=== PATIENT | female | born 1950 | race Caucasian/White ===

== ENCOUNTER 2018-02-13 02:02 | Emergency (ER) | payer MEDICARE, BC, SELFPAY ==
[2018-02-13 02:11] VITALS: BP 146/70; PULSE 62; RESP 18; TEMP 36.5; O2SAT 100
--- NOTE | 2018-02-13 02:39 | W.ED.GENAD ---
Discharge Plan Discharge Details Chief Complaint: Laceration Clinical Impression: Finger laceration Reason For Visit: R RING FINGER LACERATION Primary Care Provider: Vivian Dumont ED Provider: Wolf Pyle Disposition Patient Disposition: HOME Condition: Good Home Meds and New Rx's Prescriptions: Continue lisinopril 20 MG tablet 10 mg PO DAILY RF: 0 arm brace [Wrist Brace Medium] 1 EACH misc 2 ea Miscellaneous DAILY Qty: 2 RF: 0 arm brace [RIC Elbow Brace] 1 EACH misc 1 ea Miscellaneous DAILY Qty: 1 RF: 0 arm brace [RIC Elbow Brace] 1 EACH misc 1 ea Miscellaneous DAILY Qty: 1 RF: 0 loperamide 2 MG capsule 1 cap PO DAILY PRNRF: 0 ibuprofen 200 MG capsule 2 tab PO .Q 4-6HRS PRNRF: 0 acetaminophen [Arthritis Pain Relief (acetam)] 650 MG tablet extended release 1 tab PO PRN PRNRF: 0 levothyroxine 75 MCG tablet 75 mcg PO DAILY RF: 0 levetiracetam 250 mg Tablet 250 mg PO BID RF: 0 Discharge Instructions Instructions: Finger Laceration (ED) Additional Instructions: Do not soak the hand. Gentle washing is acceptable. Keep covered. Watch for signs of infection. Return to ED if increasing pain, redness, swelling, fever. Sutures out in 7-10 days. Referrals: [facility] [Provider Group] Discharge Data Discharge Date/Time-TO BE ENTERED AT DEPARTURE: 02/13/18 03:58 Medical Decision Making MDM Narrative Medical decision making narrative: Patient with a 1 cm linear laceration to the base of the right ring finger dorsally. Extensor tendon is intact. I am able to visualize it on inspection. She has normal strength in the finger. She has normal sensation and cap refill. She has no other injury. She has normal range of motion with no evidence of metacarpal joint involvement. Digital block was not feasible given the location of the laceration. Laceration itself was therefore anesthetized with 1% lidocaine plain. Wound was irrigated out. Extensor tendon was visualized and intact. Wound closed with 3 5-0 nylon sutures with good approximation of edges. Patient tolerated procedure well. Patient is discharged home with instructions to keep the wound clean and dry and not soak her hand. Watch for signs of infection. Sutures out in 7-10 days. Return if any evidence of infection. HPI - General Adult General Mode of arrival: ambulatory. Date/Time Provider Initiated Documentation: 02/13/18 02:39. Limitations to Documentation: no limitations. Information obtained by: patient. HPI Narrative-FOR DICTATION ONLY HPI Narrative: Patient presents to ED with laceration to the right ring finger. Patient was picking up a tote in her basement. She went to set it up on a shelf and caught her hand on a piece of window pain that she had placed up there previously. She sustained a laceration at the base of the ring finger dorsally. She thought it was a little deep so she came in for evaluation. She denies any other injury. She denies weakness or numbness to the finger. Her tetanus is up-to-date. Related Data Home Medications Medication Instructions Recorded Confirmed lisinopril 10 mg PO DAILY tab-cap 11/22/12 02/13/18 loperamide 1 cap PO DAILY PRN 04/05/13 02/13/18 ibuprofen 2 tab PO .Q 4-6HRS PRN 05/07/15 02/13/18 acetaminophen [Arthritis Pain 1 tab PO PRN PRN 10/01/15 02/13/18 Relief (acetam)] levothyroxine 75 mcg PO DAILY 06/24/16 02/13/18 levetiracetam 250 mg PO BID 02/13/18 02/13/18 Allergies Allergy/AdvReac Type Severity Reaction Status Date / Time amlodipine Allergy Intermediate Skin Rash Unverified 02/13/18 02:18 atenolol Allergy Intermediate Swelling/Ed Unverified 02/13/18 02:18 byr clindamycin Allergy Intermediate Skin Rash Unverified 02/13/18 02:18 desipramine Allergy Unknown Unverified 02/13/18 02:18 doxazosin Allergy Unknown Unverified 02/13/18 02:18 nifedipine Allergy Unknown Unverified 02/13/18 02:18 hydroxyzine Allergy Unverified 02/13/18 02:21 Penicillins Allergy Unverified 02/13/18 02:20 Bailtyi-Uhq-Lkp Reductase Allergy Other (See Unverified 02/13/18 02:18 Inhibitor Comment) cephalexin AdvReac Intermediate Diarrhea Unverified 02/13/18 02:18 rizatriptan AdvReac Intermediate Dizziness/L Unverified 02/13/18 02:18 ightheade tramadol AdvReac Intermediate Nausea, Unverified 02/13/18 02:18 vomiting zolmitriptan AdvReac Intermediate Dizziness/L Unverified 10/25/15 14:16 ightheade ketorolac AdvReac Mild eye drop RALPH Unverified 06/24/16 08:19 chocolate flavor AdvReac Other (See Unverified 02/13/18 02:21 Comment) lactose AdvReac Unverified 02/13/18 02:24 nepafenac [From Nevanac] AdvReac Headache Unverified 02/13/18 02:24 perfume AdvReac Unverified 02/13/18 02:21 cheddar cheese flavor AdvReac Headache Uncoded 02/13/18 02:24 General Stated Complaint: Laceration EFRA: 4 Review of Systems Constitutional Denies chills, Denies fever(s) and Denies weakness Musculoskeletal Denies myalgias, Denies arthralgias and Denies numbness Integumentary/Breasts Reports wounds (laceration) Neurologic Denies numbness and Denies weakness [facility] Family History Mother No problems noted. Father Diabetes Heart disease Hyperlipidemia mat aunt Personal history of malignant neoplasm Medical History Cataract Diabetes mellitus, type 2 Hypothyroidism Migraine irritable bowel syndrome Social History Smoking/Tobacco Use Status: Never Surgical History Colonoscopy - IV Sedation (~05/2012) Extraction of cataract hysterectomy, total abdominal BSO (~1991) Exam Const General: cooperative, comfortable, no acute distress and well developed Nutritional Appearance: well nourished [facility] Head: normocephalic and atraumatic Neck Neck: supple Skin Trauma: laceration (1) right dorsal 4th finger Neuro General: alert, oriented x3, no focal motor deficits and CN's II-XI intact bilaterally Sensory Exam: no sensory deficits noted Extrem Right upper extremity: normal to inspection, full ROM and hand Details: neuromotor exam normal, neurosensory exam normal and laceration Course Vital Signs Temperature 97.7 F 02/13/18 02:11 Pulse 62 02/13/18 02:11 Respiratory Rate 18 02/13/18 02:11 Blood Pressure 146/70 H 02/13/18 02:11 Pulse Oximetry 100 02/13/18 02:11 Temperature 97.7 F 02/13/18 02:11 Pulse 62 02/13/18 02:11 Respiratory Rate 18 02/13/18 02:11 Blood Pressure 146/70 H 02/13/18 02:11 Pulse Oximetry 100 02/13/18 02:11 Procedures Laceration Laceration 1: Site: hand Side (If applicable): right Size (cm): 1 Description: linear Depth: simple, single layer Local Anesthetic: Lidocaine 1% Amount of anesthesia used (mL): 1 Pre-repair: wound explored and irrigated extensively Skin layer closed with: nylon Size (cm): 5-0 Number of sutures: 3 Technique: simple, interrupted
--- NOTE | 2018-02-13 03:18 | ED.GENADUL_ITS ---
Discharge Plan Discharge Details Chief Complaint: Laceration Clinical Impression: Finger laceration Reason For Visit: R RING FINGER LACERATION Primary Care Provider: Vivian Dumont ED Provider: Wolf Pyle Disposition Patient Disposition: HOME Condition: Good Home Meds and New Rx's Prescriptions: Continue lisinopril 20 MG tablet 10 mg PO DAILY RF: 0 arm brace [Wrist Brace Medium] 1 EACH misc 2 ea Miscellaneous DAILY Qty: 2 RF: 0 arm brace [RIC Elbow Brace] 1 EACH misc 1 ea Miscellaneous DAILY Qty: 1 RF: 0 arm brace [RIC Elbow Brace] 1 EACH misc 1 ea Miscellaneous DAILY Qty: 1 RF: 0 loperamide 2 MG capsule 1 cap PO DAILY PRNRF: 0 ibuprofen 200 MG capsule 2 tab PO .Q 4-6HRS PRNRF: 0 acetaminophen [Arthritis Pain Relief (acetam)] 650 MG tablet extended release 1 tab PO PRN PRNRF: 0 levothyroxine 75 MCG tablet 75 mcg PO DAILY RF: 0 levetiracetam 250 mg Tablet 250 mg PO BID RF: 0 Discharge Instructions Instructions: Finger Laceration (ED) Additional Instructions: Do not soak the hand. Gentle washing is acceptable. Keep covered. Watch for signs of infection. Return to ED if increasing pain, redness, swelling, fever. Sutures out in 7-10 days. Referrals: [facility] [Provider Group] Discharge Data Discharge Date/Time-TO BE ENTERED AT DEPARTURE: 02/13/18 03:58 Medical Decision Making MDM Narrative Medical decision making narrative: Patient with a 1 cm linear laceration to the base of the right ring finger dorsally. Extensor tendon is intact. I am able to visualize it on inspection. She has normal strength in the finger. She has normal sensation and cap refill. She has no other injury. She has normal range of motion with no evidence of metacarpal joint involvement. Digital block was not feasible given the location of the laceration. Laceration itself was therefore anesthetized with 1% lidocaine plain. Wound was irrigated out. Extensor tendon was visualized and intact. Wound closed with 3 5-0 nylon sutures with good approximation of edges. Patient tolerated procedure well. Patient is discharged home with instructions to keep the wound clean and dry and not soak her hand. Watch for signs of infection. Sutures out in 7-10 days. Return if any evidence of infection. HPI - General Adult General Mode of arrival: ambulatory . Date/Time Provider Initiated Documentation: 02/13/18 02:39 . Limitations to Documentation: no limitations . Information obtained by: patient . HPI Narrative-FOR DICTATION ONLY HPI Narrative: Patient presents to ED with laceration to the right ring finger. Patient was picking up a tote in her basement. She went to set it up on a shelf and caught her hand on a piece of window pain that she had placed up there previously. She sustained a laceration at the base of the ring finger dorsally. She thought it was a little deep so she came in for evaluation. She denies any other injury. She denies weakness or numbness to the finger. Her tetanus is up-to-date. Related Data Home Medications Medication Instructions Recorded Confirmed lisinopril 10 mg PO DAILY tab-cap 11/22/12 02/13/18 loperamide 1 cap PO DAILY PRN 04/05/13 02/13/18 ibuprofen 2 tab PO .Q 4-6HRS PRN 05/07/15 02/13/18 acetaminophen [Arthritis Pain 1 tab PO PRN PRN 10/01/15 02/13/18 Relief (acetam)] levothyroxine 75 mcg PO DAILY 06/24/16 02/13/18 levetiracetam 250 mg PO BID 02/13/18 02/13/18 Allergies Allergy/AdvReac Type Severity Reaction Status Date / Time amlodipine Allergy Intermediate Skin Rash Unverified 02/13/18 02:18 atenolol Allergy Intermediate Swelling/Ed Unverified 02/13/18 02:18 bry clindamycin Allergy Intermediate Skin Rash Unverified 02/13/18 02:18 desipramine Allergy Unknown Unverified 02/13/18 02:18 doxazosin Allergy Unknown Unverified 02/13/18 02:18 nifedipine Allergy Unknown Unverified 02/13/18 02:18 hydroxyzine Allergy Unverified 02/13/18 02:21 Penicillins Allergy Unverified 02/13/18 02:20 [place]-Tdb-Fva Reductase Allergy Other (See Unverified 02/13/18 02:18 Inhibitor Comment) cephalexin AdvReac Intermediate Diarrhea Unverified 02/13/18 02:18 rizatriptan AdvReac Intermediate Dizziness/L Unverified 02/13/18 02:18 ightheade tramadol AdvReac Intermediate Nausea, Unverified 02/13/18 02:18 vomiting zolmitriptan AdvReac Intermediate Dizziness/L Unverified 10/25/15 14:16 ightheade ketorolac AdvReac Mild eye drop RALPH Unverified 06/24/16 08:19 chocolate flavor AdvReac Other (See Unverified 02/13/18 02:21 Comment) lactose AdvReac Unverified 02/13/18 02:24 nepafenac [From Nevanac] AdvReac Headache Unverified 02/13/18 02:24 perfume AdvReac Unverified 02/13/18 02:21 cheddar cheese flavor AdvReac Headache Uncoded 02/13/18 02:24 General Stated Complaint: Laceration EFRA: 4 Review of Systems Constitutional Denies chills, Denies fever(s) and Denies weakness Musculoskeletal Denies myalgias, Denies arthralgias and Denies numbness Integumentary/Breasts Reports wounds (laceration) Neurologic Denies numbness and Denies weakness [facility] Family History Mother No problems noted. Father Diabetes Heart disease Hyperlipidemia mat aunt Personal history of malignant neoplasm Medical History Cataract Diabetes mellitus, type 2 Hypothyroidism Migraine irritable bowel syndrome Social History Smoking/Tobacco Use Status: Never Surgical History Colonoscopy - IV Sedation (~05/2012) Extraction of cataract hysterectomy, total abdominal BSO (~1991) Exam Const General: cooperative, comfortable, no acute distress and well developed Nutritional Appearance: well nourished [facility] Head: normocephalic and atraumatic Neck Neck: supple Skin Trauma: laceration (1) right dorsal 4th finger Neuro General: alert, oriented x3, no focal motor deficits and CN's II-XI intact bilaterally Sensory Exam: no sensory deficits noted Extrem Right upper extremity: normal to inspection, full ROM and hand Details: neuromotor exam normal, neurosensory exam normal and laceration Course Vital Signs Temperature 97.7 F 02/13/18 02:11 Pulse 62 02/13/18 02:11 Respiratory Rate 18 02/13/18 02:11 Blood Pressure 146/70 H 02/13/18 02:11 Pulse Oximetry 100 02/13/18 02:11 Temperature 97.7 F 02/13/18 02:11 Pulse 62 02/13/18 02:11 Respiratory Rate 18 02/13/18 02:11 Blood Pressure 146/70 H 02/13/18 02:11 Pulse Oximetry 100 02/13/18 02:11 Procedures Laceration Laceration 1: Site: hand Side (If applicable): right Size (cm): 1 Description: linear Depth: simple, single layer Local Anesthetic: Lidocaine 1% Amount of anesthesia used (mL): 1 Pre-repair: wound explored and irrigated extensively Skin layer closed with: nylon Size (cm): 5-0 Number of sutures: 3 Technique: simple, interrupted
[2018-02-13 03:37] VITALS: BP 146/70; PULSE 62; RESP 18; TEMP 36.5; O2SAT 100
== END 2018-02-13 03:58 | disposition home or self-care (01) ==
PROVIDERS: Emergency Provider Emergency Medicine; PCP Family Medicine
DX: S61.214A Laceration without foreign body of right ring finger without damage to nail, initial encounter (principal); W25.XXXA Contact with sharp glass, initial encounter; E11.9 Type 2 diabetes mellitus without complications
CPT/HCPCS: 12001

== ENCOUNTER 2018-03-23 13:59 | Outpatient (CLI) | payer MEDICARE, BC, SELFPAY ==
--- NOTE | 2018-03-23 13:51 | DI.RAD_ITS ---
SYMPTOM/DIAGNOSIS: LT ELBOW PAIN, NECK PAIN LEFT ELBOW: Three views. No bone or joint abnormality is identified. The soft tissues are unremarkable. IMPRESSION: Negative examination. CERVICAL SPINE: Odontoid, AP and lateral views. The odontoid is intact. The lateral masses are well aligned. No acute fractures or subluxations are seen. Mild disc space narrowing is seen at C 2-3 and C 5-6. Endplate osteophytes are seen at C 5-6. There are degenerative changes of the facets seen bilaterally at C 3-4. The prevertebral soft tissues are unremarkable. IMPRESSION: 1. No acute fractures or subluxations. 2. Mild to moderate degenerative changes in the cervical spine.
== END 2018-03-23 14:19 ==
PROVIDERS: PCP Family Medicine; Referring Provider Family Medicine; Visit Provider Student in an Organized Health Care Education/Training Program
DX: M25.522 Pain in left elbow (principal); M54.2 Cervicalgia; M50.122 Cervical disc disorder at C5-C6 level with radiculopathy
CPT/HCPCS: 99204; 99214; 72040; 73080; L3908

== ENCOUNTER → 2018-06-28 12:17 | Outpatient (BNVA) | payer MEDICARE, BC, SELFPAY | PROVIDERS: PCP Family Medicine; Visit Provider Psychiatry & Neurology Neurology | DX: M25.522 Pain in left elbow (principal); G43.009 Migraine without aura, not intractable, without status migrainosus; G56.03 Carpal tunnel syndrome, bilateral upper limbs; I10 Essential (primary) hypertension; E11.9 Type 2 diabetes mellitus without complications | CPT/HCPCS: 99205; 99215 ==

== ENCOUNTER → 2018-08-25 14:00 | Outpatient (BNVA) | payer MEDICARE, BC, SELFPAY | PROVIDERS: PCP Family Medicine; Visit Provider Nurse Practitioner Adult Health | DX: G43.009 Migraine without aura, not intractable, without status migrainosus (principal); E11.9 Type 2 diabetes mellitus without complications | CPT/HCPCS: 99213 ==

== ENCOUNTER → 2018-10-24 12:36 | Outpatient (BNVA) | payer MEDICARE, BC, SELFPAY | PROVIDERS: PCP Family Medicine; Visit Provider Nurse Practitioner Adult Health | DX: G43.009 Migraine without aura, not intractable, without status migrainosus (principal); E11.9 Type 2 diabetes mellitus without complications | CPT/HCPCS: 99213 ==

== ENCOUNTER → 2019-01-23 14:03 | Outpatient (BNVA) | payer MEDICARE, BC, SELFPAY | PROVIDERS: PCP Family Medicine; Visit Provider Nurse Practitioner Adult Health | DX: G43.009 Migraine without aura, not intractable, without status migrainosus (principal); F41.8 Other specified anxiety disorders | CPT/HCPCS: 99213 ==

== ENCOUNTER → 2019-04-25 14:36 | Outpatient (BNVA) | payer MEDICARE, BC, SELFPAY | PROVIDERS: PCP Family Medicine; Referring Provider Family Medicine; Visit Provider Nurse Practitioner Adult Health | DX: G43.009 Migraine without aura, not intractable, without status migrainosus (principal); Z82.0 Family history of epilepsy and other diseases of the nervous system | CPT/HCPCS: 99213 ==

== ENCOUNTER → 2019-10-24 07:53 | Outpatient (BNVA) | payer MEDICARE, BC, SELFPAY | PROVIDERS: PCP Family Medicine; Referring Provider Family Medicine; Visit Provider Nurse Practitioner Adult Health | DX: G43.009 Migraine without aura, not intractable, without status migrainosus (principal); E11.9 Type 2 diabetes mellitus without complications | CPT/HCPCS: 99213; 99442 ==

== ENCOUNTER 2020-06-19 21:48 | Emergency (ER) | payer MEDICARE, BC, SELFPAY ==
--- NOTE | 2020-06-19 00:02 | DI.CT_ITS ---
EXAM: CT HEAD W CLINICAL HISTORY: venogram for possible cortical vein thrombosis. TECHNIQUE: Imaging Protocol: Both noninfused and contrast infused CT scans of the brain were perform ed. IV Contrast Dose =100 cc Axial computed tomography images with coronal and sagittal reformatted images were created and review ed COMPARISON: CT CT HEAD WO from 06/19/2020 FINDINGS: There are no skull fractures nor fluid in the visualized paranasal sinuses. There is no evidence of intracranial hemorrhage, mass effect, or shift of midline structures. There are no extra-axial fluid collections. The ventricles are not enlarged or shifted and there is no blo od within the ventricular system nor within the basal cisterns. There are no ring enhancing lesions in the brain and there is no abnormal meningeal enhancement, foca l or diffuse. No evidence of intraluminal thrombus within the left extra-axial cortical vein described on the preli minary report. There is no evidence of obvious venous sinus thrombosis. No obvious aneurysms. IMPRESSION: No evidence of cortical vein thrombosis, as per request. No significant enhancing intracranial findings. If clinically indicated follow-up MRI can be performed. RADIATION DOSE DELIVERED: 52.16mGy.cm Total DLP DATA REPOSITORY: All CT scans at this facility are submitted to the National Radiology Data Registry (NRDR) Dose Index Registry (DIR) with the [employer] (A[employer]). RADIATION OPTIMIZATION: All CT scans at this facility use at least one of these dose optimization te chniques: automated exposure control; mA and/or kV adjustment per patient size (includes targeted exa ms where dose is matched to clinical indication); or iterative reconstruction.
--- NOTE | 2020-06-19 21:45 | RT.EKG_ITS ---
APPROVED REPORT Exam: Resting ECG Patient Location: E HR:90 bpm ECG Measurements Heart Rate 90 AXIS MI 195 P 59 QRSd 83 QRS 36 QT 343 T 46 QTc 420 Conclusion Sinus rhythm...normal P axis, V-rate 60- 99 Low voltage, precordial leads...precordial leads <1.0mV
[2020-06-19 21:48] VITALS: BP 153/89; PULSE 106; RESP 15; TEMP 36.8; O2SAT 99
--- NOTE | 2020-06-19 21:56 | ED.GENADUL_ITS ---
Discharge Plan Disposition Patient Disposition: AGAINST MEDICAL ADVICE Condition: Stable Discharge Details Clinical Impression: Migraine headache without aura Primary Care Provider: Vivian Dumont ED Provider: Fortino Aguilar Home Meds and New Rx's Prescriptions: Continued acetaminophen [Tylenol] 325 mg tablet 650 mg PO PRN PRNRF: 0 riboflavin (vitamin B2) 100 mg tablet 100 mg PO BID RF: 0 lisinopril 20 MG tablet 10 mg PO DAILY RF: 0 loperamide 2 MG capsule 1 cap PO DAILY PRNRF: 0 levothyroxine 75 MCG tablet 75 mcg PO DAILY RF: 0 No Action cholecalciferol (vitamin D3) [Vitamin D3] 50 mcg (2,000 unit) Tablet 50 mcg PO DAILY RF: 0 Discharge Instructions Additional Instructions: Your cat scans did not show any concerning findings at this time. You declined to have the lumbar puncture at this time if you have worsening pain,feel more ill or have fevers or persistent vomit return to the emergency department you can take 1000mg tylenol and 600mg ibuprofen every 6 hours as needed follow up with your primary care provider within 1 week Discharge Data Discharge Date/Time-TO BE ENTERED AT DEPARTURE: 06/20/20 02:10 Medical Decision Making <TITUS Stein - Last Filed: 06/21/20 17:16> Patient is a 70-year-old female presented to complaint of headache and neck pain. She reports that she has chronic headaches that recur frequently. This has been present for the past 3 days. No change in the headache over that time. She states that she is also had associated neck pain. No fevers or chills. No nausea or vomiting. Denies any visual change. No focal weakness. Was seen by her chiropractor today. Chiropractor treating her with chronic pain and in her lower back as well as her headaches. She reports that after visiting the chiropractor, her headache has persisted. Patient has a multitude of allergies and is hesitant to take any medications. She finds that cool compresses do help with the headache but that ice makes it worse. She denies any rash. No known sick contacts. No recent travel. On exam, patient appears anxious and uncomfortable. She continues to hold back of her head and neck. No pain elicited with palpation. No nuchal rigidity. Normal neurological exam. Normal cardiac and respiratory exam. The patient's headache has persisted, plan for CT imaging. We will also obtain baseline labs for evaluation. Patient is difficult to read. I am unclear if this is significantly worse than her baseline. She certainly appears uncomfortable but with diffuseis fairly unchanged for the past 2 days. However, her story does change frequently and is different from that that she gave EMS. I did consider potential infectious source although without any other systemic symptoms, I find this less likely. She had no nuchal rigidity on exam. 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 Develop this to is less likely. Do not see any evidence of neurologic deficit on exam. Patient had patient had initially declined any pain medications. Again, she has a multitude of allergies and is concerned that she may have completed adverse reactions. However, she now requested ibuprofen as this is worked well for her historically. FINDINGS: Brain: There is a focus of hyperdensity in the left parietal temporal extra- axial space which may represent a prominent cortical vein. There is no acute intracranial hemorrhage, mass effect or midline shift. No large acute territorial infarct identified. There are patchy regions of hypodensity in the periventricular and subcortical white matter, likely on the basis of chronic microvascular ischemic disease. Small hypodensity in the divine is likely a remote infarct. Cerebral ventricles: The ventricles and sulci are prominent in size, which is at least in part due to global cerebral volume loss. Bones/joints: Unremarkable. No acute fracture. Paranasal sinuses: Visualized sinuses are unremarkable. No fluid levels. Mastoid air cells: Visualized mastoid air cells are well aerated. Soft tissues: Unremarkable. IMPRESSION: 1. No acute intracranial hemorrhage, mass effect or midline shift. 2. Focus of hyperdensity in the left extra-axial space which may represent a prominent cortical vein. If there is clinical concern for cortical vein thrombosis, a CT venogram or MR venogram is recommended for further evalu the ation. I discussed this finding with the patient. She agrees to the CT venogram. Was discussed that the elevated like white count has a concern for potential infectious source and that if the venogram is negative we may need to perform an LP. At the end of my shift, care transition to Dr. Aguilar with imaging pending. Patient has been hemodynamically stable, appears to be resting more comfortably. Has received IV fluids and ibuprofen. <Fortino Aguilar MD - Last Filed: 06/20/20 03:10> pt's ct did not show evidence of cortical vein thrombosis. She is hd stable and feels better after a dose of motrin. I had a long discussion with the patient about how with the studies we have done we have not evaluated fully for sah and aircraft powertrain repairer infection and would require LP. We discussed risks of the procedure and benefits of early diagnosis of these diagnoses and she has elected to defer the LP and would like d/c. She has the capacity to make her own decisions and und erstands risks of delayed diagnosis of these including and becoming disabled and is willing to accept these risks. She does understand that if she changes her mind she can always return and also advised she needs to return if worsening pain or fevers. Imaging Data Radiologic Study: Attestation: I personally reviewed and interpreted this imaging study as follows: Imaging: CT Scan Radiologist's impression: IMPRESSION: 1. No definite evidence of cortical vein thrombosis on this scan. If there is further clinical concern, MRI may be considered. 2. No evidence of abnormally enhancing lesions. HPI <TITUS Stein - Last Filed: 06/21/20 17:16> General Mode of arrival: EMS . Date/Time Provider Initiated Documentation: 06/19/20 22:06 . Limitations to Documentation: no limitations . Information obtained by: patient and RN notes reviewed . History of Present Illness 70 year old F presents to the emergency department with the chief complaint of headache and neck pain, described as severe and similar to prior episodes (hx of RALPH), with intensity rated at 8. Quality is described as aching, and is localized to the head. Patient neck. Patient started experiencing this day(s) (3) and it has been constant. No relieving factors improve symptom(s), Cold therapy worsens symptoms (cool compress to forehead) . Patient notes headaches; denies confusion, chest pain, diaphoresis, fever/chills, loss of appetite, nausea/vomiting, rash, shortness of breath, syncope and weakness. Patient did receive the following treatments prior to arrival, none Related Data Home Medications Medication Instructions Recorded Confirmed lisinopril 10 mg PO DAILY tab-cap 11/22/12 06/19/20 loperamide 1 cap PO DAILY PRN 04/05/13 06/19/20 levothyroxine 75 mcg PO DAILY 06/24/16 06/19/20 acetaminophen 325 mg tablet 650 mg PO PRN PRN tab 06/28/18 06/19/20 riboflavin (vitamin B2) 100 mg 100 mg PO BID tab 01/23/19 06/19/20 tablet cholecalciferol (vitamin D3) 50 mcg PO DAILY 06/20/20 06/20/20 [Vitamin D3] Allergies Allergy/AdvReac Type Severity Reaction Status Date / Time amlodipine Allergy Intermediate Skin Rash Unverified 01/23/19 14:27 atenolol Allergy Intermediate Swelling/Ed Unverified 01/23/19 14:27 bry clindamycin Allergy Intermediate Skin Rash Unverified 01/23/19 14:27 erythromycin base Allergy Intermediate swelling Verified 04/25/19 14:49 desipramine Allergy Unknown Unverified 01/23/19 14:27 doxazosin Allergy Unknown Unverified 01/23/19 14:27 nifedipine Allergy Unknown Unverified 01/23/19 14:27 benzonatate Allergy Headache Verified 01/23/19 14:27 hydroxyzine Allergy Unverified 01/23/19 14:27 levofloxacin Allergy headache,na Verified 01/23/19 14:27 usea Penicillins Allergy Unverified 01/23/19 14:27 Tsrtkrn-Lod-Xev Reductase Allergy Other (See Unverified 01/23/19 14:27 Inhibitor Comment) cephalexin AdvReac Intermediate Diarrhea Unverified 01/23/19 14:27 rizatriptan AdvReac Intermediate Dizziness/L Unverified 01/23/19 14:27 ightheade tramadol AdvReac Intermediate Nausea, Unverified 01/23/19 14:27 vomiting zolmitriptan AdvReac Intermediate Dizziness/L Unverified 01/23/19 14:27 ightheade ketorolac AdvReac Mild eye drop RALPH Unverified 01/23/19 14:27 chocolate flavor AdvReac Other (See Unverified 01/23/19 14:27 Comment) lactose AdvReac Unverified 01/23/19 14:27 nepafenac [From Nevanac] AdvReac Headache Unverified 01/23/19 14:27 perfume AdvReac Unverified 01/23/19 14:27 cheddar cheese flavor AdvReac Headache Uncoded 01/23/19 14:27 General Stated Complaint: Headache EFRA: 2 Review of Systems <TITUS Stein - Last Filed: 06/21/20 17:16> Constitutional Constitutional: Reports as per HPI, Denies chills, Denies fever(s), Denies frequent falls, Reports headache(s), Denies snoring and Denies weakness Eyes Eyes: Reports as per HPI, Denies blurry vision, Denies change in vision and Denies photophobia ENT Ears, Nose, Mouth, and Throat: Denies vertigo, Reports headache(s) and Reports neck pain Cardiovascular Cardiovascular: Reports as per HPI, Denies chest pain, Denies lightheadedness, Denies radiating jaw, neck or arm pain, Denies dyspnea and Denies dyspnea on exertion Respiratory Respiratory: Reports as per HPI, Denies chest congestion, Denies cough, Denies dyspnea, Denies dyspnea on exertion, Denies snoring, Denies stridor and Denies wheezing Gastrointestinal Gastrointestinal: Reports as per HPI, Denies abdominal pain, Denies change in bowel habits, Denies nausea and Denies vomiting Musculoskeletal Musculoskeletal: Reports as per HPI, Reports back pain (chronic low back pain), Denies myalgias, Denies muscle cramps, Reports neck pain and Denies numbness Integumentary/Breasts Skin/Breast: Reports as per HPI and Denies rash Neurologic Neurologic: Reports as per HPI, Denies abnormal movements, Denies abnormal speech, Denies behavioral changes, Denies confusion, Denies vertigo, Denies frequent falls, Reports headache(s), Denies localized weakness, Denies numbness, Denies sensory deficit and Denies weakness Psychiatric Psychiatric: Denies behavioral changes and Denies confusion Allergic/Immunologic Allergic/Immunologic: Denies wheezing PFSH <TITUS Stein - Last Filed: 06/21/20 17:16> Medical History (Updated 06/20/20 @ 01:19 by Fortino Aguilar MD) Cataract bilateral, left done, right still needs surgery Diabetes mellitus, type 2 diet controlled Hypothyroidism irritable bowel syndrome Migraine q 2-4 weeks Surgical History Colonoscopy - IV Sedation (~05/2012) Extraction of cataract L done, still needs right hysterectomy, total abdominal BSO (~1991) endometriosis, dense adhesions Family History Mother No problems noted. Father Diabetes Heart disease Hyperlipidemia mat aunt Personal history of malignant neoplasm uterine or ovarian CA Social History Smoking/Tobacco Use Status: Never Smoking risk assessment performed?: Yes Alcohol Intake: never Drug use: Never What is your relationship status?: Panel score (0-1 are the most socially isolated patients): 1 Do you feel safe at home: Yes Do you feel safe in your relationship?: Yes Exam <TITUS Stein - Last Filed: 06/21/20 17:16> Const General: cooperative, healthy appearing, uncomfortable, no acute distress, well developed, well groomed and anxious Nutritional Appearance: average body habitus and well nourished Orientation: alert, awake and oriented x3 HENMT Head: normal to inspection, no palpable skull fracture, normocephalic and atraumatic Ears: hearing grossly normal bilaterally, external ears normal and TM's normal bilaterally General nose exam: external nose normal Mouth: oral mucosae normal and moist mucous membranes Throat: posterior oropharynx normal Eyes General: appearance normal, both eyes and all related structures Alignment and Position: alignment normal Periorbital: periorbital findings normal Eyelids: eyelids normal Sclera: sclerae normal Cornea: corneas normal Pupils: PERRL EOM: EOM intact bilaterally Neck Neck: normal visual inspection, full ROM, no lymphadenopathy, no meningeal signs, no lymphadenopathy noted, negative Brudzinski's sign and negative Kernig's sign Carotids: normal carotid upstroke Resp Effort & Inspection: normal respiratory effort, able to speak in complete sentences and no respiratory distress Auscultation: clear to auscultation bilaterally, no rales, no rhonchi and no wheezes Cardio Rate: regular rate Rhythm: regular rhythm Heart Sounds: S1 normal and S2 normal GI Inspection: normal to inspection and non-distended Palpation: soft, no hepatosplenomegaly, not firm, no guarding, not rigid and nontender Percussion: normal to percussion Auscultation: normal bowel sounds Back/Spine/Pelvis Cervical Spine: normal cervical lordosis and cervical ROM normal Skin General skin exam: no rashes or lesions noted Neuro General: patient alert, patient awake and patient oriented x3 Cranial Nerves: CN's II-XI intact bilaterally Cognition: normal cognition Speech: speech normal Gait: normal gait Motor: muscle tone normal throughout, strength 5/5 throughout, no pronator drift, no movement abnormalities noted and no fasciculations Sensory Exam: no sensory deficits noted Coordination: [id number] test normal and [id number] test normal Extrem General: normal to inspection, capillary refill normal, no pedal edema and no calf tenderness Psych Appearance: grossly normal and well kempt Mental Status: mental status grossly normal Speech and Movement: speech and movement normal Course <TITUS Stein - Last Filed: 06/21/20 17:16> Vital Signs Vital signs: Vital Signs Temperature 36.8 C 06/19/20 21:48 Pulse 106 H 06/19/20 21:48 Respiratory Rate 15 06/19/20 21:48 Blood Pressure 153/89 H 06/19/20 21:48 Pulse Oximetry 99 06/19/20 21:48 Temperature 36.8 C 06/19/20 21:48 Pulse 106 H 06/19/20 21:48 Respiratory Rate 15 06/19/20 21:48 Blood Pressure 153/89 H 06/19/20 21:48 Blood Pressure Position Sitting 06/19/20 21:48 Pulse Oximetry 99 06/19/20 21:48 Oxygen Delivery Method Room Air 06/19/20 21:48 Oxygen Flow Rate 0 06/19/20 21:48 Pain Level 8 06/19/20 21:48 Sign Out <TITUS Stein - Last Filed: 06/21/20 17:16> Sign Out Data: Sign Out Comment: Care transitioned to Dr. Aguilar with CTV head pending. Patient has received oral ibuprofen. ESR pending. Last updated by Leydi Locke PA at 06/19/20 23:40
[2020-06-19 22:17] LABS: Abs Immature Grans 0.04 10^3/uL (0.0-0.06); Absolute Basophil Count 0.03 10^3/uL (0.0-0.2); Absolute Eosinophil Count 0.01 10^3/uL (0.0-0.7); Basophils % 0.2; Eosinophils % 0.1; HCT 45.1 % (36.0-46.0); HGB 14.1 g/dL (11.2-15.7); Immature Grans % 0.3; Lymphocytes % 8.8; MCH 26.6 pg (27.0-33.0); MCHC 31.3 % (32.0-36.0); MCV 85.1 fL (80-95); MPV 11.8 fL (8.0-11.0); Monocytes % 8.8; Neutrophils % 81.8; Nucleated RBC 0 %; Platelet Count 199 10^3/uL (130-400); RDW 13.3 % (11.7-14.6); RDW-SD 41.1 fL; WBC 13.11 10^3/uL (4.4-10.8)
[2020-06-19 22:19] LABS: Absolute Lymphocyte Count 1.15 10^3/uL (1.2-3.4); Absolute Monocyte Count 1.15 10^3/uL (0.1-0.8); Absolute Neutrophil Count 10.72 10^3/uL (1.2-6.7)
--- NOTE | 2020-06-19 22:29 | DI.CT_ITS ---
EXAM: CT HEAD WO CLINICAL HISTORY: RAPLH, neck pain. TECHNIQUE: Imaging Protocol: Axial computed tomography images with coronal and sagittal reformatted images were created and reviewed COMPARISON: No exams were available for comparison FINDINGS: There are no skull fractures nor fluid in the visualized paranasal sinuses. There is no evidence of intracranial hemorrhage, mass effect, or shift of midline structures. There are no extra-axial fluid collections. The ventricles are not enlarged or shifted and there is no blo od within the ventricular system nor within the basal cisterns. Small focus of hypointensity noted in the central left side of the divine (series 2/image 11), possibly nonhemorrhagic lacunar infarct measuring 3 x 3 millimeters. IMPRESSION: 3 x 3 millimeter area of hypodensity in the central left divine, possibly nonhemorrhagic lacunar infarc t. Recommend follow-up MRI with diffusion imaging. RADIATION DOSE DELIVERED: 559.53mGy.cm Total DLP DATA REPOSITORY: All CT scans at this facility are submitted to the National Radiology Data Registry (NRDR) Dose Index Registry (DIR) with the [employer] (A[employer]). RADIATION OPTIMIZATION: All CT scans at this facility use at least one of these dose optimization te chniques: automated exposure control; mA and/or kV adjustment per patient size (includes targeted exa ms where dose is matched to clinical indication); or iterative reconstruction.
[2020-06-19 22:30] LABS: ALT 14 U/L (14-59); AST 13 U/L (15-37); Albumin 3.8 g/dL (3.4-5.0); Alkaline Phosphatase 87 U/L (46-116); Anion Gap 11.6 mmol/L (3-11); BUN 14 mg/dL (7-18); Bilirubin, Total 0.8 mg/dL (0.2-1.0); CO2 26.4 mmol/L (21.0-32.0); CREATININE 0.94 mg/dL (0.55-1.02); Calcium 9.4 mg/dL (8.5-10.1); Chloride 100 mmol/L (98-107); Estimated GFR 58.53 (mL/min/1.73m2); Glucose 165 mg/dL (74-106); Potassium 3.6 mmol/L (3.5-5.1); Sodium 138 mmol/L (136-145); Total Protein 8.2 g/dL (6.4-8.2)
[2020-06-19 22:40] LABS: INR 1.1 (0.9-1.1); PTT Activated 26.9 sec (21.0-27.5); Prothrombin Time 10.7 sec (9.3-11.0)
[2020-06-19] MEDS: Normal Saline 1,000 ML 150 ML IV (22:49)
[2020-06-19] MEDS: Ibuprofen 600 MG TAB PO (23:13)
--- NOTE | 2020-06-19 23:20 | DI.VRAD_ITS ---
PROCEDURE INFORMATION: Exam: CT Head Without Contrast Exam date and time: 06/19/2020 10:30 PM Age: 70 years old Clinical indication: Pain; Headache not specified TECHNIQUE: Imaging protocol: Computed tomography of the head without contrast. Radiation optimization: All CT scans at this facility use at least one of these dose optimization techniques: automated exposure control; mA and/or kV adjustment per patient size (includes targeted exams where dose is matched to clinical indication); or iterative reconstruction. COMPARISON: No relevant prior studies available. FINDINGS: Brain: There is a focus of hyperdensity in the left parietal temporal extra-axial space which may represent a prominent cortical vein. There is no acute intracranial hemorrhage, mass effect or midline shift. No large acute territorial infarct identified. There are patchy regions of hypodensity in the periventricular and subcortical white matter, likely on the basis of chronic microvascular ischemic disease. Small hypodensity in the divine is likely a remote infarct. Cerebral ventricles: The ventricles and sulci are prominent in size, which is at least in part due to global cerebral volume loss. Bones/joints: Unremarkable. No acute fracture. Paranasal sinuses: Visualized sinuses are unremarkable. No fluid levels. Mastoid air cells: Visualized mastoid air cells are well aerated. Soft tissues: Unremarkable. IMPRESSION: 1. No acute intracranial hemorrhage, mass effect or midline shift. 2. Focus of hyperdensity in the left extra-axial space which may represent a prominent cortical vein. If there is clinical concern for cortical vein thrombosis, a CT venogram or MR venogram is recommended for further evalu the ation. Dictated and Authenticated by: Rachna Sparks MD. Ordering:NATE Holley MD
[2020-06-20 00:08] LABS: ESR 39 mm/hr (0-30)
[2020-06-20] MEDS: Normal Saline Flush 10 ML SYR IVP (00:38)
[2020-06-20] MEDS: Omnipaque 350 MG/ML 100 ML BTL IJ (00:39)
[2020-06-20] MEDS: Normal Saline - Diluent 50 ML VIAL IV (00:40)
--- NOTE | 2020-06-20 01:03 | DI.VRAD_ITS ---
PROCEDURE INFORMATION: Exam: CT Head With Contrast Exam date and time: 06/19/2020 12:02 AM Age: 70 years old Clinical indication: Malaise or fatigue; Additional info: Venogram, eval for cortical vein thrombosis TECHNIQUE: Imaging protocol: Computed tomography of the head with intravenous contrast. 3D rendering (Not supervised by radiologist): MIP and/or 3D reconstructed images were created by the technologist. Radiation optimization: All CT scans at this facility use at least one of these dose optimization techniques: automated exposure control; mA and/or kV adjustment per patient size (includes targeted exams where dose is matched to clinical indication); or iterative reconstruction. Contrast material: [id number]; Contrast volume: 100 ml; Contrast route: INTRAVENOUS (IV); COMPARISON: CT HEAD WO 06/19/2020 10:26 PM FINDINGS: Brain: The prominent hyperdensity in the left parietal temporal region does in fact represent a prominent cortical vein. There is no evidence of thrombus within the vein. No mass effect. No abnormal enhancing lesions. Cerebral ventricles: The ventricles are prominent in size, at least in part due to global cerebral volume loss. Bones/joints: Unremarkable. No acute fracture. Paranasal sinuses: Visualized sinuses are unremarkable. No fluid levels. Mastoid air cells: Visualized mastoid air cells are well aerated. Soft tissues: Unremarkable. IMPRESSION: 1. No definite evidence of cortical vein thrombosis on this scan. If there is further clinical concern, MRI may be considered. 2. No evidence of abnormally enhancing lesions. Dictated and Authenticated by: Rachna Sparks MD. Ordering:NATE Holley MD
[2020-06-20 01:43] VITALS: BP 117/58; PULSE 75; RESP 16; TEMP 36.6; O2SAT 97
== END 2020-06-20 02:10 | disposition left against medical advice (07) ==
PROVIDERS: Physician Assistant; Emergency Provider Emergency Medicine; PCP Family Medicine
DX: G43.809 Other migraine, not intractable, without status migrainosus (principal); M54.2 Cervicalgia; E11.9 Type 2 diabetes mellitus without complications
CPT/HCPCS: 36415; 80053; 85652; 93005; 96360; 96361; 99285; 70450; 70460; 85025; 85610; 85730; 93010; J3490

== ENCOUNTER → 2020-07-22 13:26 | Outpatient (BNVA) | payer MEDICARE, BC, SELFPAY | PROVIDERS: PCP Nurse Practitioner; Referring Provider Family Medicine; Visit Provider Nurse Practitioner Adult Health | DX: R51.9 Headache, unspecified (principal); M54.2 Cervicalgia; R90.89 Other abnormal findings on diagnostic imaging of central nervous system | CPT/HCPCS: 64405; 99213; 99215 ==

== ENCOUNTER 2020-08-01 00:52 | Outpatient (CLI) | payer MEDICARE, BC, SELFPAY ==
--- NOTE | 2020-08-01 07:30 | DI.MRI_ITS ---
EXAM: MR BRAIN WO CLINICAL HISTORY: pt with ? divine infarct on CT,r90.89,f/u abln ct,headache TECHNIQUE: Multiplanar multisequence MRI of the brain was performed. COMPARISON: CT CT HEAD WO from 06/19/2020 FINDINGS: CEREBRAL PARENCHYMA: No evidence of intracranial hemorrhage, mass effect nor shift of midline structu re. No extraaxial fluid collections. Ventricles are not enlarged nor shifted. There is no significant focal signal abnormality in the cerebellar hemispheres nor within the divine, m idbrain, and thalami. There are multiple small foci of white matter signal abnormality in the left periventricular white ma tter, average size measuring 3 millimeters. Lesser amount of similar findings are seen in the right periventricular white matter. These nonspecific findings are not associated with hemorrhage, surroun ding edema, nor abnormal signal on diffusion imaging to suggest that they are acute lacunar infarcts. There is indeed no significant focal signal abnormality evident on diffusion imaging to suggest acute ischemic event. PITUITARY GLAND: No mass nor parasellar abnormality. No obvious abnormality in the cavernous sinuses. FLOW VOIDS: The expected flow void are noted. No evidence of obvious aneurysm nor obvious vascular ma lformation. Incidentally noted is deficient flow-void in the proximal left posterior cerebral artery. The left posterior cerebral artery appears to be predominantly fed by a posterior communicating art alicia on the left side of the [id number]. PARANASAL SINUSES: The visualized paranasal sinuses appear unremarkable. No obvious finding ORBITS: No obvious findings. IMPRESSION: Nonspecific periventricular white matter findings as described above, more prominent on the left side but doubtful for acute ischemic events given the absence of signal abnormality on diffusion imaging. Also no evidence of hemorrhage. The left posterior cerebral artery appears to be predominantly fed by a posterior communicating arter y on the left side of the [id number]. This is most probably developmental. DATA REPOSITORY:
== END 2020-08-01 00:53 ==
LOC: DI 00:52
PROVIDERS: PCP Nurse Practitioner; Visit Provider Nurse Practitioner Adult Health
DX: R51.9 Headache, unspecified (principal); R90.89 Other abnormal findings on diagnostic imaging of central nervous system; R90.82 White matter disease, unspecified
CPT/HCPCS: 70551

== ENCOUNTER 2020-09-13 03:19 | Outpatient (CLI) | payer MEDICARE, BC, SELFPAY ==
--- NOTE | 2020-09-13 15:27 | DI.MAMMO_ITS ---
EXAM: MG MAMMO SCREENING CLINICAL HISTORY: screening,Z12,39 TECHNIQUE: Mammograms were interpreted according to the usual protocol including computer analysis w [facility] CAD system, tomosynthesis and C-view imaging. COMPARISON: FINDINGS: Breasts are heterogeneously dense. No dominant mass or clumped microcalcification is identified in e ither breast. The current examination is compared with previous examinations including March 2019 and there has been no gross interval change in appearance in comparison with the prior studies. IMPRESSION: No specific evidence of malignancy at this time. Routine screening examinations are suggested at yea rly intervals due to the family history of breast carcinoma. BI-RADS Category 1 - Negative Breast Density - Category C - Heterogeneously dense
== END 2020-09-13 03:39 ==
PROVIDERS: PCP Nurse Practitioner; Visit Provider Nurse Practitioner
DX: Z12.31 Encounter for screening mammogram for malignant neoplasm of breast (principal); Z80.3 Family history of malignant neoplasm of breast
CPT/HCPCS: 77063; 77067

== ENCOUNTER → 2020-09-26 14:02 | Outpatient (BNVA) | payer MEDICARE, BC, SELFPAY | PROVIDERS: PCP Nurse Practitioner; Referring Provider Family Medicine; Visit Provider Nurse Practitioner Adult Health | DX: R51.9 Headache, unspecified (principal); F41.1 Generalized anxiety disorder; G56.03 Carpal tunnel syndrome, bilateral upper limbs; R41.89 Other symptoms and signs involving cognitive functions and awareness | CPT/HCPCS: 64405; 99213 ==

== ENCOUNTER 2020-09-30 03:32 | Outpatient (CLI) | payer MEDICARE, BC, SELFPAY ==
[2020-09-30 08:30] LABS: Hemoglobin A1C 5.8 % (<5.7)
[2020-09-30 09:19] LABS: Calculated LDL 93 mg/dL (<100); Cholesterol 192 mg/dL (<200); HDL Cholesterol 73 mg/dL (40-60); TSH 1.73 uIU/mL (0.36-3.74); Triglyceride 131 mg/dL (<150)
== END 2020-09-30 03:33 | disposition home or self-care (01) ==
LOC: LBO 03:32
PROVIDERS: PCP Nurse Practitioner; Visit Provider Nurse Practitioner
DX: E03.9 Hypothyroidism, unspecified (principal); I10 Essential (primary) hypertension; R73.03 Prediabetes; Z13.6 Encounter for screening for cardiovascular disorders
CPT/HCPCS: 36415; 80061; 82565; 83036; 84132; 84443

== ENCOUNTER → 2021-10-15 00:35 | Outpatient (CLI) | payer MEDICARE, BC, SELFPAY ==
--- NOTE | 2021-10-15 07:15 | DI.MAMMO_ITS ---
Exam(s) MAMMO SCREENING EXAM: MAMMO SCREENING CLINICAL HISTORY: screening.z12.39 TECHNIQUE: Mammograms were interpreted according to the usual protocol including computer analysis w [employer] CAD system, tomosynthesis and C-view imaging. COMPARISON: 2011 through 2020 FINDINGS: The breasts are composed of scattered fibroglandular densities, Breast Density category B. No suspicious masses or suspicious microcalcifications are seen. Vascular calcifications are noted. No skin thickening or abnormal axillary lymph nodes are seen. There has been no significant change from prior exams. IMPRESSION: BI-RADS Category 1, Negative mammogram Yearly screening mammography is recommended. Breast Density - Category B, scattered fibroglandular densities. A negative radiographic report should not delay biopsy if a dominant or clinically suspicious mass is present. Up to ten percent of cancers are not identified on mammography. A negative report may reinforce clinical impression. Adenosis and dense breasts may obscure an underlying neoplasm. False positive reports average 6 to 10%. Patient will receive a letter notifying them of these results.
== END ==
PROVIDERS: PCP Nurse Practitioner; Visit Provider Nurse Practitioner
DX: Z12.31 Encounter for screening mammogram for malignant neoplasm of breast (principal)
CPT/HCPCS: 77063; 77067

== ENCOUNTER 2021-10-17 02:50 | Outpatient (CLI) | payer MEDICARE, BC, SELFPAY ==
[2021-10-17 07:51] LABS: Hemoglobin A1C 6.2 % (<5.7)
[2021-10-17 08:38] LABS: Anion Gap 8.9 mmol/L (3-11); BUN 17 mg/dL (7-18); CO2 30.1 mmol/L (21.0-32.0); Calcium 9.3 mg/dL (8.5-10.1); Chloride 104 mmol/L (98-107); Estimated GFR 54.35 (mL/min/1.73m2); Glucose 99 mg/dL (74-106); Sodium 143 mmol/L (136-145); TSH (W/Ref FT4) 3.61 uIU/mL (0.36-3.74)
== END 2021-10-17 02:51 | disposition home or self-care (01) ==
LOC: LBO 02:50
PROVIDERS: PCP Nurse Practitioner; Visit Provider Nurse Practitioner
DX: I10 Essential (primary) hypertension (principal); R73.09 Other abnormal glucose
CPT/HCPCS: 36415; 80048; 83036; 84443

== ENCOUNTER 2021-10-21 11:03 | Outpatient (CLI) | payer MEDICARE, BC, SELFPAY ==
--- NOTE | 2021-10-21 11:00 | DI.RAD_ITS ---
Exam(s) XR SHOULDER RT COMPLETE 2+V EXAM: XR SHOULDER RT COMPLETE 2+V CLINICAL HISTORY: pain in shoulder. TECHNIQUE: 2D digital imaging was performed. COMPARISON: No exams were available for comparison FINDINGS: Two views No evidence of fracture or dislocation or abnormal soft tissue calcifications. There are mild degene rative changes in the glenohumeral joint. Minimal degenerative changes in the AC joint. No abnormal soft tissue calcifications in the non diminished subacromial space. A few degenerative cysts are no ace in the lateral half of the humeral head. IMPRESSION: DATA REPOSITORY: RADIATION DOSE DELIVERED:
== END 2021-10-21 11:04 | disposition home or self-care (01) ==
LOC: DIORS 11:04
PROVIDERS: PCP Nurse Practitioner; Referring Provider Nurse Practitioner; Visit Provider Physician Assistant Surgical
DX: M25.511 Pain in right shoulder; M75.81 Other shoulder lesions, right shoulder
CPT/HCPCS: 20610; 99214; 73030; J1040

== ENCOUNTER → 2021-10-23 00:14 | Outpatient (CLI) | payer MEDICARE, BC, SELFPAY ==
--- NOTE | 2021-10-23 08:45 | DI.DEXA_ITS ---
Exam(s) XR DEXA BONE DENSITY W/WO MARIA E EXAM: XR DEXA BONE DENSITY W/WO MARIA E CLINICAL HISTORY: SCREENING FOR OSTEOPOROSIS IN POSTMENOPAUSAL WOMAN,Z78.0 TECHNIQUE: COMPARISON: CR LUMBAR SPINE COMPLETE from 07/07/2012 FINDINGS: DEXA scan was performed according to the usual protocol. Please see the accompanying data sheets. Left hip scanning shows T-score -1.8 with left femoral neck T-score -1.8. Prior examination of lauren 2012 showed left hip T-score -1.1. Lumbar spine scanning shows T-score -2.0. Prior examination of 2012 showed lumbar T-score -1.9. Left forearm scanning shows T-score -3.9. Prior examination of 2012 showed forearm T-score -2.2. IMPRESSION: Measurements are consistent with osteoporosis according to WHO criteria. Lateral vertebral scanogram shows no evidence of a vertebral compression fracture. RADIATION DOSE DELIVERED: Total DLP
== END ==
PROVIDERS: PCP Nurse Practitioner; Visit Provider Nurse Practitioner
DX: M81.0 Age-related osteoporosis without current pathological fracture (principal); Z78.0 Asymptomatic menopausal state
CPT/HCPCS: 77080

== ENCOUNTER → 2022-01-01 00:42 | Outpatient (CLI) | payer MEDICARE, BC, SELFPAY ==
--- NOTE | 2022-01-01 08:30 | DI.RAD_ITS ---
Exam(s) RF JOINT INJECTION FLUORO GUID EXAM: RF JOINT INJECTION FLUORO GUID CLINICAL HISTORY: R SHOULDER PAIN, RT SHOULDER CUFF TENDONITIS, PAIN, M75.81, M25.519 TECHNIQUE: Fluoroscopy provided. Radiologist not present. CONTRAST MATERIAL: None COMPARISON: No exams were available for comparison FINDINGS: Fluoroscopy was provided for therapeutic right shoulder injection. Submitted image(s) reveal intra-articular needle placement Please refer to the procedure report for complete details. Cumulative Dose: reyna Katz=1.47 mGy IMPRESSION: RADIATION DOSE DELIVERED:
[2022-01-01] MEDS: Bupivacaine 0.5% Pres-Free 30 ML VIAL 5 ML IJ (15:02)
[2022-01-01] MEDS: Omnipaque 300 MG/ML 10 ML BTL IJ (15:03)
[2022-01-01] MEDS: methylPREDNISolone ACETATE 80 MG/ML VIAL IM (15:04)
--- NOTE | 2022-01-01 15:12 | W.PROCNOTE ---
Date of service: 01/01/22 Time of Service: 15:12 Procedure Note Date of procedure: 01/01/22 Procedure: Right Shoulder Injection Surgeon/Proceduralist/Physician: Kimo Bingham Procedure Diagnosis: Right Shoulder Pain Procedure Indications: Isabella has had persistent pain of the RIGHT shoulder. Noninvasive measures have been tried. To serve as both diagnostic and therapeutic, an injection under fluoroscopy was recommended. I had discussed the risks of the procedure and the patient elected to proceed. Procedure Description: Isabella was greeted in the flouroscopy room. The correct side was identified and the consent was reviewed with the patient and signed. The patient was then placed in the supine position on the fluoroscopy table. The RIGHT shoulder was then prepped with Chloraprep. The anterior injection starting point was identiifed by bony landmarks and fluoroscopy. The skin and soft tissue in the tract of the injection was anesthetized with 1% Lidocaine. A spinal needle was then inserted deep into the shoulder joint at the level of the recess between the glenoid and superior humeral head. A small amount of Omnipaque solution was injected to confirm intraarticular placement. Once confirmed, the shoulder was injected with 4cc of 0.5% Bupivicaine and 80mg of Depo-Medrol. A bandaid was placed on the injection site. The patient tolerated the procedure well and noted improvement in pre-injection pain.
== END ==
PROVIDERS: PCP Nurse Practitioner; Visit Provider Student in an Organized Health Care Education/Training Program
DX: M25.511 Pain in right shoulder (principal); M75.81 Other shoulder lesions, right shoulder
CPT/HCPCS: 20610; 77002; J1040

== ENCOUNTER 2022-01-28 11:06 | Outpatient (REF) | payer MEDICARE, BC, SELFPAY ==
[2022-01-28 12:39] LABS: Bilirubin Negative (Negative); Blood Negative (Negative); Clarity Clear (Clear); Glucose Negative (Negative); Ketones Negative (Negative); Leukocyte Esterase Negative (Negative); Nitrite Negative (Negative); Urobilinogen 0.2 EU/dL (Up TO 0.2)
== END 2022-01-28 11:07 | disposition home or self-care (01) ==
LOC: LBN 11:06
PROVIDERS: PCP Nurse Practitioner; Visit Provider Family Medicine
DX: R30.0 Dysuria (principal); R39.15 Urgency of urination
CPT/HCPCS: 81003

== ENCOUNTER → 2022-04-02 02:40 | Outpatient (CLI) | payer MEDICARE, BC, SELFPAY ==
--- NOTE | 2022-04-02 13:22 | DI.RAD_ITS ---
Exam(s) RF JOINT INJECTION FLUORO GUID EXAM: RF JOINT INJECTION FLUORO GUID CLINICAL HISTORY: R SHOULDER INJ UNDER FLUORO,RT ROTATOR CUFF TENDONITIS,M75.81 TECHNIQUE: 2D and realtime digital imaging was performed. COMPARISON: No exams were available for comparison FINDINGS: Fluoroscopy is utilized by Dr. Bingham during right shoulder injection. Hard copy shows intra-artic ular injection of the right shoulder. IMPRESSION: RADIATION DOSE DELIVERED: reyna Katz= 0.09 mGy Total DLP
--- NOTE | 2022-04-02 13:23 | OPPNE_ITS ---
Date of service: 04/02/22 Time of Service: 13:23 Procedure Note Date of procedure: 04/02/22 Procedure: Right Shoulder Injection Surgeon/Proceduralist/Physician: Kimo Bingham Procedure Diagnosis: Right Shoulder Pain Procedure Indications: Isabella has had persistent pain of the RIGHT shoulder. Noninvasive measures have been tried and she has had previous success with injection. To serve as both diagnostic and therapeutic, an injection under fluoroscopy was recommended. I had discussed the risks of the procedure and the patient elected to proceed. Procedure Description: Isabella was greeted in the flouroscopy room. The correct side was identified and the consent was reviewed with the patient and signed. The patient was then placed in the supine position on the fluoroscopy table. The RIGHT shoulder was then prepped with Chloraprep. The anterior injection starting point was identiifed by bony landmarks and fluoroscopy. The skin and soft tissue in the tract of the injection was anesthetized with 1% Lidocaine. A spinal needle was then inserted deep into the shoulder joint at the level of the recess between t he glenoid and superior humeral head. A small amount of Omnipaque solution was injected to confirm intraarticular placement. Once confirmed, the shoulder was injected with 5cc of 0.5% Bupivicaine and 80mg of Depo-Medrol. A bandaid was placed on the injection site. The patient tolerated the procedure well and noted improvement in pre-injection pain.
[2022-04-02] MEDS: Bupivacaine 0.5% Pres-Free 10 ML VIAL 5 ML IJ (13:36)
[2022-04-02] MEDS: methylPREDNISolone ACETATE 80 MG/ML VIAL IM (13:38)
[2022-04-02] MEDS: Omnipaque 300 MG/ML 10 ML BTL IJ (13:39)
== END ==
PROVIDERS: PCP Nurse Practitioner; Visit Provider Student in an Organized Health Care Education/Training Program
DX: M75.81 Other shoulder lesions, right shoulder (principal); M25.511 Pain in right shoulder
CPT/HCPCS: 20610; 77002; J1040

== ENCOUNTER 2022-08-17 00:54 | Outpatient (CLI) | payer MEDICARE, BC, SELFPAY ==
--- NOTE | 2022-08-17 07:15 | DI.MRI_ITS ---
Exam(s) MR UPPER JOINT RT WO EXAM: MR UPPER JOINT RT WO CLINICAL HISTORY: PAIN,RT ROTATOR CUFF TENDONITIS, M75.81. TECHNIQUE: Multiplanar multisequence MRI was performed. COMPARISON: Plain films 21 Oct 2021 FINDINGS: BONES: There is no fracture or contusion pattern. There is spurring at the tip of the acromion as we ll as at the greater and lesser tuberosities. Small cysts are noted in the humeral head. JOINTS:The acromioclavicular joint is normal. The glenohumeral joint is normal. TENDONS: Supraspinatus: Marked thickening. Full-thickness tear with retraction approximately 1 cm. Infraspinatus: Unremarkable. Subscapularis: Question of a partial tear with retraction of inner fibers. Teres Minor: Unremarkable. Biceps and [place]: Unremarkable. MUSCLES: Unremarkable. GLENOID LABRUM: Unremarkable on this noncontrast examination. SOFT TISSUES: Unremarkable. OTHER: Subacromial and subdeltoid bursae show large amount of fluid. Fluid also noted in the subcor acoid region around proximal biceps tendon.. IMPRESSION: Full-thickness tear with retraction of the supraspinatus tendon. Question partial tear of the subsca pularis tendon. Large joint effusion. DATA REPOSITORY:
== END 2022-08-17 01:14 ==
PROVIDERS: PCP Nurse Practitioner Family; Visit Provider Student in an Organized Health Care Education/Training Program
DX: M75.81 Other shoulder lesions, right shoulder (principal); M25.511 Pain in right shoulder; M75.101 Unspecified rotator cuff tear or rupture of right shoulder, not specified as traumatic; M25.411 Effusion, right shoulder; M67.813 Other specified disorders of tendon, right shoulder
CPT/HCPCS: 73221

== ENCOUNTER 2022-08-27 01:02 | Outpatient (CLI) | payer MEDICARE, BC, SELFPAY ==
--- NOTE | 2022-08-27 07:30 | DI.RAD_ITS ---
Exam(s) RF JOINT INJECTION FLUORO GUID EXAM: RF JOINT INJECTION FLUORO GUID CLINICAL HISTORY: R SHOULDER INJ UNDER FLUORO,RT ROTATOR CUFF TENDINITIS,M75.81. TECHNIQUE: Fluoroscopy was provided for the referring physician for guidance with performing right s houlder injection procedure. COMPARISON: No exams were available for comparison FINDINGS: Please see procedure note for details. Fluoro time: 4 seconds RADIATION DOSE DELIVERED: Sterlingr=0.17 mGy
--- NOTE | 2022-08-27 14:40 | W.PROCNOTE ---
Date of service: 08/27/22 Time of Service: 14:41 Procedure Note Date of procedure: 08/27/22 Procedure: Right Shoulder Injection Surgeon/Proceduralist/Physician: Kimo Bingham Procedure Diagnosis: Right Rotator Cuff Tear and Arthritis Procedure Indications: Isabella has had persistent pain of the RIGHT shoulder. Noninvasive measures have been tried. To serve as both diagnostic and therapeutic, an injection under fluoroscopy was recommended. I had discussed the risks of the procedure and the patient elected to proceed. Procedure Description: Isabella was greeted in the flouroscopy room. The correct side was identified and the consent was reviewed with the patient and signed. The patient was then placed in the supine position on the fluoroscopy table. The RIGHT shoulder was then prepped with Chloraprep. The anterior injection starting point was identiifed by bony landmarks and fluoroscopy. The skin and soft tissue in the tract of the injection was anesthetized with 1% Lidocaine. A spinal needle was then inserted deep into the shoulder joint at the level of the recess between the glenoid and superior humeral head. A small amount of Omnipaque solution was injected to confirm intraarticular placement. Once confirmed, the shoulder was injected with 5cc of 0.5% Bupivicaine and 80mg of Depo-Medrol. A bandaid was placed on the injection site. The patient tolerated the procedure well and noted improvement in pre-injection pain.
[2022-08-27] MEDS: methylPREDNISolone ACETATE 80 MG/ML VIAL IM (15:22)
[2022-08-27] MEDS: Bupivacaine 0.5% Pres-Free 10 ML VIAL 5 ML IJ (15:23)
== END 2022-08-27 01:22 ==
LOC: DI 01:02
PROVIDERS: PCP Nurse Practitioner Family; Visit Provider Student in an Organized Health Care Education/Training Program
DX: M75.81 Other shoulder lesions, right shoulder (principal); M25.511 Pain in right shoulder
CPT/HCPCS: 20610; 77002; J1040

== ENCOUNTER 2022-10-09 01:30 | Outpatient (CLI) | payer MEDICARE, BC, SELFPAY ==
[2022-10-09 15:06] LABS: Hemoglobin A1C 6.4 % (<5.7)
[2022-10-09 15:25] LABS: ALT 15 U/L (14-59); AST 14 U/L (15-37); Albumin 3.6 g/dL (3.4-5.0); Alkaline Phosphatase 99 U/L (46-116); Anion Gap 4.6 mmol/L (3-11); BUN 15 mg/dL (7-18); Bilirubin, Total 0.3 mg/dL (0.2-1.0); CO2 31.4 mmol/L (21.0-32.0); Calcium 9.2 mg/dL (8.5-10.1); Chloride 103 mmol/L (98-107); Estimated GFR 59.12 (mL/min/1.73m2); Glucose 136 mg/dL (74-106); Potassium 3.7 mmol/L (3.5-5.1); Sodium 139 mmol/L (136-145); TSH (W/Ref FT4) 1.99 uIU/mL (0.36-3.74); Total Protein 7.2 g/dL (6.4-8.2)
== END 2022-10-09 01:31 | disposition home or self-care (01) ==
LOC: LBO 01:31
PROVIDERS: PCP Nurse Practitioner Family; Visit Provider Nurse Practitioner Family
DX: I10 Essential (primary) hypertension (principal); R73.03 Prediabetes; E03.9 Hypothyroidism, unspecified
CPT/HCPCS: 36415; 80053; 83036; 84443

== ENCOUNTER 2022-10-16 00:30 | Outpatient (CLI) | payer MEDICARE, BC, SELFPAY ==
--- NOTE | 2022-10-16 08:15 | DI.MAMMO_ITS ---
Exam(s) MAMMO SCREENING EXAM: MAMMO SCREENING CLINICAL HISTORY: screening. TECHNIQUE: Bilateral full field digital CC and MLO mammographic images were obtained with 3D tomosyn thesis and utilizing computer aided detection (CAD). COMPARISON: Prior mammograms were reviewed. FINDINGS: No new significant findings in left breast. In the right breast on the 3D cc imaging there is an asymmetric density-possible nodule located sligh tly lateral center approximately 5 cm in from the nipple and measuring by 4 mm. There are no malignant-appearing microcalcification groups in this region or elsewhere in either [address]. There is no significant architectural distortion nor skin thickening-retraction. IMPRESSION: 1. No radiographic evidence of malignancy in left breast. 2. Asymmetric density-possible 4 millimeter nodule in the right breast. Spot compression right CC view and ultrasound recommended. BI-RADS Category 0 - Assessment Incomplete: Need additional imaging evaluation Breast Density - Category B - Scattered areas of fibroglandular density Breast density Category C or D implies that the patient has dense breast tissue. Dense breast tissue can make it harder to find cancer on a mammogram. Dense breast tissue is also associated with an incr eased risk of breast cancer. This information about the result of the mammogram report was provided to the patient to raise their awareness. Use this report when you speak with the patient about their risks for breast cancer, which includes their family history. At that time, you may recommend additional screening tests (Ultrasoun d or MRI) as these tests may add significant information. A negative radiographic report should not delay biopsy if a dominant or clinically suspicious mass is present. Up to ten percent of cancers are not identified on mammography. A negative report may reinforce clinical impression. Adenosis and dense breasts may obscure an underlying neoplasm. False positive reports average 6 to 10%. Patient will receive a letter notifying them of these results.
== END 2022-10-16 00:50 ==
LOC: DI 00:31
PROVIDERS: PCP Nurse Practitioner Family; Visit Provider Nurse Practitioner Family
DX: E03.9 Hypothyroidism, unspecified (principal); Z12.31 Encounter for screening mammogram for malignant neoplasm of breast
CPT/HCPCS: 77063; 77067

== ENCOUNTER 2022-10-23 00:37 | Outpatient (CLI) | payer MEDICARE, BC, SELFPAY ==
--- NOTE | 2022-10-23 | DI.MAMMO_ITS ---
Exam(s) MAMMO SCREEN CALL BACK UNI EXAM: MAMMO SCREEN CALL BACK UNI CLINICAL HISTORY: ASYMMETRIC DENSITY-POSSIBLE NODULE RT BREAST R92.8 ABNL MAMMO TECHNIQUE: Cc spot compression views with tomographic imaging were performed. COMPARISON: 201216 Oct 2022 FINDINGS: No suspicious masses or suspicious microcalcifications are seen. No persistent abnormality is seen on the additional views performed. The findings are consistent wit h overlying fibroglandular tissue. There has been no significant change from prior exams. IMPRESSION: BI-RADS Category 1, Negative Yearly screening mammography is recommended. Breast Density - Category B, scattered fibroglandular densities.
== END 2022-10-23 00:57 ==
LOC: DI 00:38
PROVIDERS: PCP Nurse Practitioner Family; Visit Provider Nurse Practitioner Family
DX: R92.8 Other abnormal and inconclusive findings on diagnostic imaging of breast (principal)
CPT/HCPCS: 77063; 77067

== ENCOUNTER → 2023-03-22 15:27 | Outpatient (CLI) | payer MEDICARE, BC, SELFPAY ==
--- NOTE | 2023-03-22 14:45 | DI.RAD_ITS ---
Exam(s) XR ANKLE RT COMPLETE XR FOOT RT COMPLETE EXAM: XR ANKLE RT COMPLETE CLINICAL HISTORY: fall ankle injury, PAIN, M25.571. TECHNIQUE: 2D digital imaging was performed. Three views of the foot and ankle. COMPARISON: CR XR FOOT RT COMPLETE from 03/22/2023 FINDINGS: BONES: No acute fracture is present. No bony destructive lesion is seen. Enthesophyte at Achilles in sertion. JOINTS: The ankle mortise is normally aligned. SOFT TISSUE: Normal. Mild vascular calcifications. Medial soft tissue swelling. IMPRESSION: No acute abnormality. DATA REPOSITORY: RADIATION DOSE DELIVERED:
== END ==
PROVIDERS: PCP Nurse Practitioner Family; Visit Provider Physician Assistant
DX: M25.571 Pain in right ankle and joints of right foot (principal)
CPT/HCPCS: 73610; 73630

== ENCOUNTER → 2023-03-25 14:28 | Outpatient (BNVA) | payer MEDICARE, BC, SELFPAY | PROVIDERS: PCP Nurse Practitioner Family; Referring Provider Nurse Practitioner Family; Visit Provider Student in an Organized Health Care Education/Training Program | DX: M75.81 Other shoulder lesions, right shoulder (principal); S93.401A Sprain of unspecified ligament of right ankle, initial encounter; X58.XXXA Exposure to other specified factors, initial encounter | CPT/HCPCS: 20611; 99213; J1040 ==

== ENCOUNTER → 2023-08-30 16:49 | Outpatient (CLI) | payer MEDICARE, BC, SELFPAY ==
--- NOTE | 2023-08-30 13:45 | DI.RAD_ITS ---
Exam(s) XR ELBOW LT COMPLETE EXAM: XR ELBOW LT COMPLETE CLINICAL HISTORY: LT ELBOW PAIN, M25.522. TECHNIQUE: 2D digital imaging was performed. Three views. COMPARISON: CR XR elbow LT complete from 03/23/2018 FINDINGS: BONES: No acute fracture is present. No bony destructive lesion is seen. JOINTS: The elbow is normally aligned. No joint effusion is seen. SOFT TISSUE: Normal. IMPRESSION: Unremarkable radiographs of the left elbow. DATA REPOSITORY: RADIATION DOSE DELIVERED:
--- NOTE | 2023-08-30 13:45 | DI.RAD_ITS ---
Exam(s) XR SHOULDER LT COMPLETE 2+V EXAM: XR SHOULDER LT COMPLETE 2+V CLINICAL HISTORY: left shoulder pain. TECHNIQUE: 2D digital imaging was performed. Three views. COMPARISON: MR MR UPPER JOINT RT WO from 08/17/2022 FINDINGS: BONES: No acute fracture is present. No bony destructive lesion is seen. JOINTS: No dislocation present. The AC joint shows no significant spurring. Minimal spurring at the glenoid. Glenohumeral joint space is maintained. Humeral head is normally positioned. SOFT TISSUE: Normal. IMPRESSION: Mild degenerative changes. DATA REPOSITORY: RADIATION DOSE DELIVERED:
== END ==
PROVIDERS: PCP Nurse Practitioner Family; Visit Provider Nurse Practitioner Family
DX: M25.522 Pain in left elbow (principal); M25.512 Pain in left shoulder
CPT/HCPCS: 73030; 73080

== ENCOUNTER → 2023-09-08 14:49 | Outpatient (BNVA) | payer MEDICARE, BC, SELFPAY | PROVIDERS: PCP Nurse Practitioner Family; Referring Provider Nurse Practitioner Family | DX: M75.82 Other shoulder lesions, left shoulder (principal) | CPT/HCPCS: 20610; J1040 ==

== ENCOUNTER → 2023-11-12 00:03 | Outpatient (CLI) | payer MEDICARE, BC, SELFPAY ==
--- NOTE | 2023-11-12 07:30 | DI.MRI_ITS ---
Exam(s) MR UPPER JOINT LT WO EXAM: MR UPPER JOINT LT WO CLINICAL HISTORY: no relief with PT, lt wrist pain, M25.532. TECHNIQUE: Multiplanar multisequence MRI was performed. COMPARISON: Exam interpreted without benefit of comparison plain films. FINDINGS: BONES: There is no fracture or contusion pattern. Degenerative cysts in the distal pole of the navic ular. JOINTS: Mild degenerative changes at the radiocarpal and intercarpal joints as well as 1st carpal met acarpal joint.. TENDONS: Flexors: Unremarkable. Extensors: Unremarkable. MUSCLES: Unremarkable. MEDIAN NERVE: Unremarkable on this noncontrast examination. SOFT TISSUES: Unremarkable. LIGAMENTS: Unremarkable. TRIANGULAR FIBROCARTILAGE: Unremarkable. OTHER: IMPRESSION: No evidence of tendon abnormality or fracture. Mild degenerative changes. DATA REPOSITORY:
--- NOTE | 2023-11-12 07:42 | DI.MRI_ITS ---
Exam(s) MR UPPER JOINT LT WO EXAM: MR UPPER JOINT LT WO CLINICAL HISTORY: no relief with PT, lt shoulder pain, M25.512. TECHNIQUE: Multiplanar multisequence MRI was performed. COMPARISON: Plain films 30 August 2023 FINDINGS: BONES: There is no fracture or contusion pattern. Some small degenerative cysts in the superior humer al head. JOINTS:The acromioclavicular joint is normal. The glenohumeral joint is normal. No joint effusion. TENDONS: Supraspinatus: Diffusely thickened arm with intermediate signal. Small focal partial tear anteriorly in distally. Infraspinatus: Unremarkable. Subscapularis: Unremarkable. Teres Minor: Unremarkable. Biceps and [place]: Unremarkable. MUSCLES: Unremarkable. GLENOID LABRUM: Unremarkable on this noncontrast examination. SOFT TISSUES: Unremarkable. OTHER: Subacromial and subdeltoid bursae small amount fluid. IMPRESSION: Supraspinatus tendinosis with small partial tear anteriorly. DATA REPOSITORY:
== END ==
PROVIDERS: PCP Nurse Practitioner Family; Visit Provider Nurse Practitioner Family
DX: M75.82 Other shoulder lesions, left shoulder (principal)
CPT/HCPCS: 73221

== ENCOUNTER → 2023-11-22 02:19 | Outpatient (CLI) | payer MEDICARE, BC, SELFPAY | PROVIDERS: PCP Nurse Practitioner Family; Visit Provider Nurse Practitioner Family | DX: Z12.31 Encounter for screening mammogram for malignant neoplasm of breast (principal) | CPT/HCPCS: 77063; 77067 ==

== ENCOUNTER 2023-11-23 05:15 | Outpatient (CLI) | payer MEDICARE, BC, SELFPAY ==
[2023-11-23 09:18] LABS: Anion Gap 7.5 mmol/L (3-11); BUN 17 mg/dL (7-18); CO2 31.5 mmol/L (21.0-32.0); Calcium 9.2 mg/dL (8.5-10.1); Chloride 104 mmol/L (98-107); Estimated GFR 58.75 (mL/min/1.73m2); Glucose 94 mg/dL (74-106); Potassium 3.5 mmol/L (3.5-5.1); Sodium 143 mmol/L (136-145); TSH (W/Ref FT4) 2.38 uIU/mL (0.36-3.74)
== END 2023-11-23 05:16 | disposition home or self-care (01) ==
LOC: LBO 05:15
PROVIDERS: PCP Nurse Practitioner Family; Visit Provider Nurse Practitioner Family
DX: I10 Essential (primary) hypertension (principal); E03.9 Hypothyroidism, unspecified
CPT/HCPCS: 36415; 80048; 84443

== ENCOUNTER → 2023-12-09 13:43 | Outpatient (BNVA) | payer MEDICARE, BC, SELFPAY | PROVIDERS: PCP Nurse Practitioner Family; Referring Provider Nurse Practitioner Family; Visit Provider Student in an Organized Health Care Education/Training Program | DX: M75.121 Complete rotator cuff tear or rupture of right shoulder, not specified as traumatic (principal); M75.81 Other shoulder lesions, right shoulder | CPT/HCPCS: 20611; J1010 ==

== ENCOUNTER → 2024-01-27 13:57 | Outpatient (BNVA) | payer MEDICARE, BC, SELFPAY | PROVIDERS: PCP Nurse Practitioner Family; Referring Provider Nurse Practitioner Family; Visit Provider Student in an Organized Health Care Education/Training Program | DX: M75.82 Other shoulder lesions, left shoulder (principal) | CPT/HCPCS: 20610; J1010 ==

== ENCOUNTER → 2024-05-08 14:45 | Outpatient (BNVA) | payer MEDICARE, BC, SELFPAY | PROVIDERS: PCP Nurse Practitioner Family; Referring Provider Nurse Practitioner Family; Visit Provider Student in an Organized Health Care Education/Training Program | DX: M75.121 Complete rotator cuff tear or rupture of right shoulder, not specified as traumatic (principal) | CPT/HCPCS: 20611; J1010 ==

== ENCOUNTER 2024-08-08 01:29 | Outpatient (CLI) | payer MEDICARE, BC, SELFPAY ==
--- NOTE | 2024-08-08 07:00 | DI.MRI_ITS ---
Exam(s) MR LUMBAR SPINE WO EXAM: MR LUMBAR SPINE WO CLINICAL HISTORY: exacerbation of chronic issue,spinal stenosis L 405,M48.06. TECHNIQUE: Multiplanar multisequence MRI of the Lumbar spine was performed. COMPARISON: MR MRI - LUMBAR SPINE WO CONTRAST from 10/09/2015 CR XR DEXA BONE DENSITY W/WO MARIA E from 10/23/2021 FINDINGS: Bones: The last intervertebral disc space is designated the L5/S1 level for the numbering purpose of this ex amination. There is now moderate central compression of the L4 vertebral body, new since the prior exam. Schmor l's nodes are noted at both superior and inferior endplates. Mild compression fracture of the superi or endplate of L5. There is mildly increased signal within the vertebral bodies consistent with sub acute compression fractures. Again noted is bilateral L5 spondylolysis and cyst slight L5-S1 spondyl olisthesis, stable. Hemangioma noted in L1. Alignment: Unremarkable. Cord: The conus tip ends at the T12 level. It is of normal size and signal intensity. T11-12: Circumferential small endplate osteophytes and disc bulging. Facet degenerative changes. No significant neural foraminal narrowing with central canal stenosis. CT T12-L1: No focal disc herniation is present. No central spinal canal stenosis.No neural foraminal st enosis. L1-2: No focal disc herniation is present. No central spinal canal stenosis.No neural foraminal sten osis. L2-3: No focal disc herniation is present. No central spinal canal stenosis.No neural foraminal christiano nosis. L3-4: The disc height is maintained. Mild circumferential disc bulging. No focal disc herniation is present. Mild facet degenerative changes. Mild central spinal canal stenosis, worsening from prio r..No neural foraminal stenosis. L4-5:Small endplate osteophytes and mild circumferential disc bulging. Facet degenerative changes a nd ligamentous hypertrophy. No focal disc herniation is present. Moderate to severe central spinal canal stenosis, worsening from prior..Mild bilateral neural foraminal stenosis. L5-S1: Mild loss of disc height. Slight disc bulging.No focal disc herniation is present. Facet deg enerative changes. L5 spondylolysis and slight L5-S1 spondylolisthesis, stable. No central spinal c anal stenosis.Mild right neural foraminal stenosis. The visualized SI joints and sacrum are unremarkable. Soft tissues: The paraspinal soft tissues are unremarkable. Left renal cysts are again noted. IMPRESSION: Subacute compression fractures of L4 and L5.. Degenerative disc changes, facet degenerative changes and ligamentous hypertrophy combine to produce moderate to severe central canal stenosis at L4-5 as well as mild bilateral neural foraminal narrowin g. Stable appearance of L5 spondylolysis and mild L5-S1 spondylolisthesis. Mild right neural foraminal narrowing. DATA REPOSITORY:
== END 2024-08-08 01:49 ==
PROVIDERS: PCP Nurse Practitioner Family; Visit Provider Nurse Practitioner Family
DX: M48.02 Spinal stenosis, cervical region (principal); M99.61 Osseous and subluxation stenosis of intervertebral foramina of cervical region; M43.16 Spondylolisthesis, lumbar region; S32.048A Other fracture of fourth lumbar vertebra, initial encounter for closed fracture; S32.058A Other fracture of fifth lumbar vertebra, initial encounter for closed fracture; X58.XXXA Exposure to other specified factors, initial encounter
CPT/HCPCS: 72148

== ENCOUNTER → 2024-08-25 10:56 | Outpatient (BNVA) | payer MEDICARE, BC, SELFPAY | PROVIDERS: PCP Nurse Practitioner Family; Referring Provider Nurse Practitioner Family | DX: M75.121 Complete rotator cuff tear or rupture of right shoulder, not specified as traumatic (principal) | CPT/HCPCS: 20611; 99213; J1010 ==

== ENCOUNTER 2024-10-03 01:19 | Outpatient (CLI) | payer MEDICARE, BC, SELFPAY ==
--- NOTE | 2024-10-03 | DI.MRI_ITS ---
Exam(s) MR ABDOMEN WO/W EXAM: MR ABDOMEN WO/W CLINICAL HISTORY: COMPLEX RENAL CYST N28.1, RENAL MASS N28.89 TECHNIQUE: Multiplanar multisequence MRI of the Abdomen was performed. CONTRAST MATERIAL: IV Contrast: 13 mL of Dotarem contrast administered. CT CT HEAD W from 06/19/2020 US POCUS EXAM from 03/25/2023 US POCUS EXAM from 12/09/2023 US POCUS EXAM from 05/08/2024 MR MR LUMBAR SPINE WO from 08/08/2024 US POCUS EXAM from 08/25/2024 FINDINGS: Lung bases: Unremarkable. Liver: No evidence of a hepatic mass. There is normal signal intensity. No intrahepatic biliary boaz tom dilatation. Pancreas: No evidence of a pancreatic mass or peripancreatic fluid collection. Gallbladder and Bile Ducts: There is a 1.4 cm gallstone. No intra or extrahepatic biliary ductal dil atation. No gallbladder wall thickening or pericholecystic fluid is seen. Adrenals: Unremarkable. No evidence of an adrenal mass. Kidneys: There is again seen a cyst in the lower pole of the left kidney. 3.4 AP by 3.1 transverse by 3.6 cc cm. This compares to 2.8 x 2.3 x 2.7 cm on the prior examination. There are thin septations s een internally. Following contrast administration, there is enhancement of a few of the thin septatio ns. There are also smaller simple cysts seen in the kidneys. These are stable and do not require fur ther evaluation. No obstructive uropathy. No solid renal mass. Spleen: Unremarkable. Bowel: There is diverticulosis seen in the colon. There is no evidence of bowel obstruction or bowel wall thickening. Aorta: Unremarkable. Soft Tissues: Unremarkable. Bone: Degenerative changes are seen at L2-L3 causing mild narrowing of the central spinal canal. Lymph Nodes: Unremarkable. IMPRESSION: 1. Complex cyst in the left kidney shown some increase in size measuring 3.4 x 3.1 x 3.6 cm. This com pares to 2.8 x 2.3 x 2.7 cm on the prior examination. There thin enhancing septations again seen. 2. Colonic diverticulosis. 3. Cholelithiasis. No biliary ductal dilatation. DATA REPOSITORY:
[2024-10-03] MEDS: Normal Saline - Diluent 50 ML VIAL IJ (08:00)
[2024-10-03] MEDS: Gadoterate meglumine 20 ML VIAL 13 ML IVP (08:01)
== END 2024-10-03 01:39 ==
LOC: DI 01:19
PROVIDERS: PCP Nurse Practitioner Family; Visit Provider Urology
DX: N28.1 Cyst of kidney, acquired (principal)
CPT/HCPCS: 74183

== ENCOUNTER 2024-10-31 18:53 | Outpatient (REF) | payer MEDICARE, BC, SELFPAY ==
[2024-10-31 21:20] LABS: Hemoglobin A1C 6.1 % (<5.7)
[2024-10-31 23:15] LABS: ALT 13 U/L (14-59); AST 18 U/L (15-37); Albumin 4.1 g/dL (3.4-5.0); Alkaline Phosphatase 108 U/L (46-116); Anion Gap 6.6 mmol/L (3-11); BUN 18 mg/dL (7-18); Bilirubin, Total 0.4 mg/dL (0.2-1.0); CO2 30.4 mmol/L (21.0-32.0); CREATININE 0.9 mg/dL (0.55-1.02); Calcium 9.3 mg/dL (8.5-10.1); Chloride 102 mmol/L (98-107); Estimated GFR 66.26 (mL/min/1.73m2); Glucose 106 mg/dL (74-106); Sodium 139 mmol/L (136-145); TSH (W/Ref FT4) 2.94 uIU/mL (0.36-3.74); Total Protein 7.2 g/dL (6.4-8.2); Vitamin D 25 Total 30 ng/mL (30-100)
== END 2024-10-31 18:54 | disposition home or self-care (01) ==
LOC: LBN 18:53
PROVIDERS: PCP Nurse Practitioner Family; Visit Provider Nurse Practitioner Family
DX: R73.03 Prediabetes (principal); E03.9 Hypothyroidism, unspecified; M81.0 Age-related osteoporosis without current pathological fracture; I10 Essential (primary) hypertension
CPT/HCPCS: 80053; 82306; 83036; 84443

== ENCOUNTER 2025-01-09 02:54 | Outpatient (CLI) | payer MEDICARE, BC, SELFPAY ==
--- NOTE | 2025-01-09 13:01 | DI.MAMMO_ITS ---
Exam(s) MAMMO SCREENING EXAM: MAMMO SCREENING CLINICAL HISTORY: screening, Z12.39. TECHNIQUE: Bilateral full field digital CC and MLO mammographic images were obtained with 3D tomosynthesis and utilizing computer aided detection (CAD). COMPARISON: Prior mammograms were reviewed. FINDINGS: There has been no significant change in the appearance and distribution of the fibroglandular tissue. There are no new spiculated masses nor malignant appearing microcalcification groups. There is no significant architectural distortion nor skin thickening-retraction. IMPRESSION: No radiographic evidence of malignancy. BI-RADS Category 1 - Negative Breast Density - Category B - There are scattered areas of fibroglandular density. Breast density Category C or D implies that the patient has dense breast tissue. Dense breast tissue can make it harder to find cancer on a mammogram. Dense breast tissue is also associated with an increased risk of breast cancer. This information about the result of the mammogram report was provided to the patient to raise their awareness. Use this report when you speak with the patient about their risks for breast cancer, which includes their family history. At that time, you may recommend additional screening tests (Ultrasound or MRI) as these tests may add significant information. A negative radiographic report should not delay biopsy if a dominant or clinically suspicious mass is present. Up to ten percent of cancers are not identified on mammography. A negative report may reinforce clinical impression. Adenosis and dense breasts may obscure an underlying neoplasm. False positive reports average 6 to 10%. Patient will receive a letter notifying them of these results.
== END 2025-01-09 03:14 ==
LOC: DI 02:54
PROVIDERS: PCP Nurse Practitioner Family; Visit Provider Nurse Practitioner Family
DX: Z12.31 Encounter for screening mammogram for malignant neoplasm of breast (principal); R73.03 Prediabetes; R92.323 Mammographic fibroglandular density, bilateral breasts
CPT/HCPCS: 77063; 77067